=== PATIENT | female | born 1955 | race Caucasian/White ===

== ENCOUNTER 2017-09-28 14:08 | Emergency (ER) | payer OTHER ==
[~2017-09-28] VITALS: Ht 167.6 cm; Wt 55.0 kg
[2017-09-28 15:08] LABS: BASOPHILS % (AUTO) 0.1 % (0-1); EOSINOPHILS # (AUTO) 0.2 X10'3 (0-0.9); EOSINOPHILS % (AUTO) 1.9 % (0-6); HEMOGLOBIN 16.9 g/dl (12.0-16.0); LYMPHOCYTES # (AUTO) 1.8 X10'3 (1.1-4.8); LYMPHOCYTES % (AUTO) 16.9 % (21-51); MEAN CORPUSCULAR HEMOGLOBIN 33.7 PG (27.0-31.0); MEAN CORPUSCULAR HGB CONC 34.6 % (33.0-36.5); MEAN CORPUSCULAR VOLUME 97.7 FL (78-98); MEAN PLATELET VOLUME 8.2 FL (7.4-10.4); MONOCYTES # (AUTO) 0.9 X10'3 (0-0.9); MONOCYTES % (AUTO) 8.2 % (2-12); NEUTROPHILS # (AUTO) 7.9 X10'3 (1.8-7.7); NEUTROPHILS % (AUTO) 72.9 % (42-75); PLATELET COUNT 276 X10'3 (140-440); RED BLOOD COUNT 5.02 X10'6 (4.20-5.60); RED CELL DISTRIBUTION WIDTH 14.7 % (11.5-14.5); WHITE BLOOD COUNT 10.8 X10'3 (4.5-11.0)
[2017-09-28 15:28] LABS: PARTIAL THROMBOPLASTIN TIME 23 SECONDS (22-32); PROTHROMBIN TIME 10.7 SECONDS (9.0-12.0)
[2017-09-28 15:41] LABS: ALANINE AMINOTRANSFERASE 27 U/L (12-78); ALKALINE PHOSPHATASE 80 IU/L (46-116); ANION GAP 10 (8-16); ASPARTATE AMINO TRANSFERASE 25 U/L (10-37); BILIRUBIN,TOTAL 0.7 MG/DL (0.1-1.0); BLOOD UREA NITROGEN 13 MG/DL (7-18); BUN/CREATININE RATIO 15.1 (6.6-38.0); CALCIUM 9.6 MG/DL (8.5-10.1); CHLORIDE 100 MMOL/L (99-107); CREATININE 0.86 MG/DL (0.40-0.90); GLUCOSE 99 MG/DL (70-104); SODIUM 137 MMOL/L (135-145); TOTAL CARBON DIOXIDE 27.4 MMOL/L (24-32); TOTAL PROTEIN 7.9 G/DL (6.4-8.2); eGFR 67 ML/MIN
[2017-09-28 15:42] LABS: POTASSIUM 4.8 MMOL/L (3.5-5.1)
[2017-09-28 16:25] VITALS: BP 111/70
[2017-09-29] MEDS ORDERED: Lisinopril PO (11:35)
[2017-09-29] MEDS ORDERED: THC INH (11:35)
[2017-09-29] MEDS ORDERED: LEVO25TA7 PO (11:35)
[2017-09-29] MEDS ORDERED: HYDR-569 PO (11:35)
[2017-09-29] MEDS ORDERED: EST1T PO (11:35)
[2017-09-29] MEDS ORDERED: ALBU18HF2 INH (11:35)
[2017-09-29] MEDS ORDERED: BECL8.7A7 INH (11:35)
[2017-09-29] MEDS ORDERED: DIGO125T PO (11:35)
[2017-09-29] MEDS ORDERED: LEVE500T PO (11:35)
[2017-09-29] MEDS ORDERED: VENL-190 PO (11:35)
[2017-09-29] MEDS ORDERED: SPIR25TA3 PO (11:35)
[2017-09-29] MEDS ORDERED: DIAZ5TAB4 PO (11:35)
== END 2017-09-28 16:27 | disposition home or self-care (01) ==
LOC: ER 14:09
DX: R07.9 Chest pain, unspecified (principal); I50.9 Heart failure, unspecified; Z88.1 Allergy status to other antibiotic agents; Z88.0 Allergy status to penicillin
CPT/HCPCS: 36415; 71045; 80053; 83880; 84484; 85025; 85610; 85730; 93005; 99285